=== PATIENT | female | born 1995 | race Two or more races ===

== ENCOUNTER 2024-12-20 13:41 | Observation (INO) | payer MEDICAID, SELFPAY ==
[2024-12-20] VITALS (12 sets, daily range): BP systolic 110; BP diastolic 63; PULSE 78–87; RESP 18–98; O2SAT 97–99; BMI 30.4
[2024-12-20 15:19] LABS: Collection Type, Urine Clean Catch
[2024-12-20 15:28] LABS: Bacteria,Urine Rare; Bilirubin,Urine Negative (Negative); Blood,Urine Negative (Negative); Clarity,Urine Clear (Clear/Hazy); Color,Urine Colorless (Lt Yel-Yel); Glucose, Urine Negative (Negative); Ketones,Urine Negative (Negative); Leukocyte Esterase,Urine Negative (Negative); Nitrite,Urine Negative (Negative); PH,Urine 7.5 (5.0-7.0); Protein,Urine Negative (Neg - Trace); RBC,Urine 7 /hpf (0-3); Specific Gravity,Urine 1.005 (1.001-1.035); Squamous Epithelial Cell,Urine 5 /hpf (0-5); Urobilinogen,Urine Negative mg/dL (0.0-1.0); WBC,Urine 1 /hpf (0-5)
[2024-12-20 15:56] LABS: FFN Specimen Descripton Clr Colrless Aqueous; Fetal Fibronectin Negative (Negative)
--- NOTE | 2024-12-20 16:22 | PD.EVENT ---
Documentation for date of: 12/20/24 Event Note Event Note: The patient is a 29-year-old Hx CS x 1 and one at 29 6/7 weeks who presented to [facility] with complaints of left lower pelvic pain. No bleeding and she reported movement. She denies nausea, vomiting, fevers or chills. She is pointing to her left groin area. In triage she was worked up with a nonstress test which revealed no contractions ,a fibronectin was negative, and urinalysis was negative. Her cervix was closed thick and high. The patient was asking about taking a medication that she takes from [place] which is some type of stomach relaxing agent. I told her we are not sure if this medication is safe in . She can follow-up with her primary OB who is Grant at [facility] for further discussion. Maybe she will have her medication bottle at that time and they can look it up. We reassured her there is nothing obstetrical going on today, no signs of abruption, labor, or a bladder infection. The patient can follow-up at her next scheduled appointment at [facility]. Potential causes of her pain could be pubic bone diastases or some type of myofascial strain versus a vulvar varicosity. A brace was recommended.
== END 2024-12-20 16:18 | disposition home or self-care (01) ==
PROVIDERS: Admitting Provider Obstetrics & Gynecology; Visit Provider Obstetrics & Gynecology
DX: O26.893 Other specified pregnancy related conditions, third trimester (principal); Z3A.29 29 weeks gestation of pregnancy; R10.2 Pelvic and perineal pain
CPT/HCPCS: 59025; 59899; 81001; 82731